=== PATIENT | male | born 1960 | race African-American/Black ===

== ENCOUNTER 2024-06-22 09:00 | Emergency (ER) | payer BC ==
[~2024-06-22] VITALS: Ht 180.3 cm; Wt 109.0 kg
[2024-06-22 09:07] VITALS: O2SAT 94
[2024-06-22] MEDS: ALBUTEROL (0.083%) 2.5MG/3ML NEB HHN STA ×2 (10:24→11:39)
[2024-06-22] MEDS: IPRATROPIUM BROMIDE (0.02%) 0.5MG/2.5ML NEB HHN STA ×2 (10:24→11:40)
[2024-06-22 10:25] VITALS: PULSE 95; RESP 22
[2024-06-22] MEDS: PREDNISONE 20MG TABLET PO STA (10:29)
[2024-06-22 11:45] VITALS: PULSE 89; RESP 20
[2024-06-22] MEDS ORDERED: P20 MT (13:07)
[2024-06-22] MEDS ORDERED: ALBU05 NEB (13:07)
[2024-06-22 13:35] VITALS: BP 138/74; PULSE 108; RESP 20; TEMP 36.6; O2SAT 95
== END 2024-06-22 13:40 | disposition home or self-care (01) ==
LOC: ER 09:00
DX: J45.901 Unspecified asthma with (acute) exacerbation (principal); R07.9 Chest pain, unspecified
CPT/HCPCS: 71045; 93005; 94644; 99285; J7512; Z7610 ×3; 94070; 94640; 94664